=== PATIENT | female | born 1930 | race Caucasian/White ===

== ENCOUNTER → 2018-05-17 | Outpatient (CLI) | payer MEDICARE ==
[~2018-05-17] MED LIST: AMLODIPINE BES2.5 MG PO; ASPIRIN81 M1 PO; ATENOLOL100 MG PO; CALCIUM; FISH OIL; NEXIUM40 MG PO; SEROQUEL XR150 MG PO; TEMAZEPAM30 MG PO; VITAMIN C; VITAMIN D; VITAMIN E
--- NOTE | 2018-05-17 11:25 | Diagnostic Imaging Report ---
PROCEDURE: Frontal and lateral views of the chest. COMPARISON: None. INDICATIONS: FALL, LOWER BACK PAIN, COMPRESSION FRACTURE FINDINGS: Exam is limited due to patient rotation. Lines/tubes: None. Lungs: The lungs are well inflated and grossly clear. There is no evidence of pneumonia or pulmonary edema. Pleura: There is no pleural effusion or pneumothorax. Heart and mediastinum: Cardiac silhouette is unremarkable. Atherosclerotic calcification of aortic arch. Bones and soft tissues: Age-indeterminate compression fractures of likely T11 and L1. Generalized osteopenia. Degenerative changes in the thoracic spine. Metallic clips project in the region of the left breast. IMPRESSION: 1. No acute cardiopulmonary abnormalities. 2. Age-indeterminate compression fractures of likely T11 and L1. Michael Mcgrath M.D. Dictated by: Michael Mcgrath M.D. on 05/17/2018 at 11:30 Electronically approved by: Michael Mcgrath M.D. on 05/17/2018 at 11:30
== END ==
LOC: RAD 10:14
PROVIDERS: ATTEND Family Medicine
DX: S32.009A Unspecified fracture of unspecified lumbar vertebra, initial encounter for closed fracture (principal)
CPT/HCPCS: 71046

== ENCOUNTER → 2019-01-30 | Day surgery (SDC) | payer MEDICARE ==
[2019-01-29 10:51] LABS: BASOPHILS % 0.8 % (0.0-1.0); EOSINOPHILS # (AUTO) 0.1 (0.0-0.4); HEMATOCRIT 35.7 % (34.2-44.1); HEMOGLOBIN 11.2 g/dL (12.0-16.0); LYMPHOCYTES # (AUTO) 0.9 (1.0-3.2); LYMPHOCYTES % 18.3 % (18.0-39.1); MEAN CORPUSCULAR HEMOGLOBIN 31.3 pg (28-32); MEAN CORPUSCULAR HGB CONC 31.4 g/dL (31-35); MEAN CORPUSCULAR VOLUME 99.7 fL (81-99); MONOCYTES # (AUTO) 0.4 (0.2-0.8); MONOCYTES % 7.8 % (4.4-11.3); NEUTROPHILS # (AUTO) 3.5 (2.1-6.9); NEUTROPHILS % 70.9 % (38.7-80.0); PLATELET COUNT 153 x10e3/uL (140-360); RED BLOOD COUNT 3.58 x10e6/uL (3.6-5.1); RED CELL DISTRIBUTION WIDTH 12.7 % (11.7-14.4)
[~2019-01-30] MED LIST changes: +AMIODARONE HCL200 MG; +BENADRYL25 M1; +BISACODYL5 MG PO; +DIAZEPAM5 MG PO; +DOCUSATE SODIU100 MG PO; +ELIQUIS; +GABAPENTIN100 MG; +HYDRALAZINE HCL25 MG PO; +LEVALBUTER0.63 MG/3 NEB; +LIDOCAINE HCL 2% LOCAL INJ 5 ML SDV VIAL INJ ONE; +LIDOCAINE TD; +NEOMYCIN/POLYMYX/BACITR OINT 0.9 GM PKT ONE; +NORCO 7.5-3251 EACH PO; +ONDANSETRON ODT8 MG; +PANTOPRAZOLE SO40 MG PO; +PRESERVISION A1 EACH; +PROPOFOL IV EMULSION 10 MG/ML 20 ML VIAL ONE; +TRAZODONE HCL100 MG; +[UNRECOGNIZED DRUG - OTHER]
--- OUTSIDE RECORDS SUMMARY | 2019-01-30 09:11 | XMS REPORT ---
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 Allergies, Adverse Reactions, Alerts Allergy Name Allergy Type Status Severity Reaction(s) Onset Date Inactive Date Treating Clinician Comments meperidine HCl DA Active [place] 2018-06-20 00:00:00 Medications This patient has no known medications. Results Test Description Test Time Test Comments Text Results Atomic Results Result Comments CHEST 2 VIEWS 2018-05-17 11:30:00 [place] [address] Patient Name: BULL COBB MR #: [id number] : 1930 Age/Sex: 88/F Req #: [id number] Adm Physician: Ordered by: SUNNY HELMS MD Report #: [id number] Location: [facility] Room/Bed: Procedure: [id number] DX/CHEST 2 VIEWS Exam Date: 05/17/18 Exam Time: 1030 REPORT STATUS: Signed PROCEDURE: Frontal and lateral views of the chest. COMPARISON: None. INDICATIONS: FALL, LOWER BACK PAIN, COMPRESSION FRACTURE FINDINGS: Exam is limited due to patient rotation. Lines/tubes: None. Lungs: The lungs are well inflated and grossly clear. There is no evidence of pneumonia or pulmonary edema. Pleura: There is no pleural effusion or pneumothorax. Heart and mediastinum: Cardiac silhouette is unremarkable. Atherosclerotic calcification of aortic arch. Bones and soft tissues: Age-indeterminate compression fractures of likely T11 and L1. Generalized osteopenia. Degenerative changes in the thoracic spine. Metallic clips project in the region of the left breast. IMPRESSION: 1. No acute cardiopulmonary abnormalities. 2. Age-indeterminate compression frac tures of likely T11 and L1. Duong Perera M.D. Dictated by: Duong Perera M.D. on 05/17/2018 at 11:30 Electronically approved by: Duong Perera M.D. on 05/17/2018 at 11:30 Dictated By: DUONG PERERA MD 1130 Transcribed By: GERARDO on 05/17/18 1130 COPY TO: SUNNY HELMS MD
--- OUTSIDE RECORDS SUMMARY | 2019-01-30 09:11 | XMS REPORT | Clinical Summary ---
Author Author [facility] Organization [facility] Address Unknown Phone Unavailable Care Team Providers Care Retail Field Supervisor Name Role Phone Evan Lamas MD PCP Allergies Comments Active Allergy Reactions Severity Noted Date Patient stated that she was told by a doctor at [facility] that she should not take demerol. Patient does not know reaction, states she felt like she was dying Meperidine Other (See 04/29/2016 Comments) Medications End Date Status Medication Sig Dispensed Refills Start Date Active amLODIPine (NORVASC) 10 Take 5 mg by 0 mg tablet mouth daily. Active amIODarone (PACERONE) 200 Take 100 mg 0 MG tablet by mouth every other day. Active morPHINE (MS CONTIN) 15 Take 15 mg by 0 MG 12 hr tablet mouth every 12 (twelve) hours. Active traZODone (DESYREL) 100 Take 200 mg 0 MG tablet by mouth nightly. Active tamsulosin (FLOMAX) 0.4 Take 0.4 mg 0 mg capsule,extended by mouth as release 24hr needed. Active oxyCODone-acetaminophen Take 1 tablet 0 (PERCOCET) 7.5-325 mg per by mouth 2 tablet (two) times a day as needed for moderate pain. Active ondansetron ODT Take 4 mg by 0 (ZOFRAN-ODT) 4 MG mouth every 8 disintegrating tablet (eight) hours as needed for nausea or vomiting. Active cholecalciferol, vitamin Take 1,000 0 D3, (VITAMIN D3) 1,000 Units by unit tablet mouth daily. Active calcium carbonate Take 1 tablet 0 (CALCIUM 600 ORAL) by mouth daily. Active vitamin E 400 UNIT Take 400 0 capsule Units by mouth daily. Active ascorbic acid, vitamin C, Take 500 mg 0 (VITAMIN C) 500 MG tablet by mouth daily. Active cyanocobalamin (VITAMIN Take 1,000 0 B-12) 1000 MCG tablet mcg by mouth daily. Active vit Take 2 0 C/E/Zn/coppr/lutein/zeaxa tablets by n (PRESERVISION AREDS 2 mouth daily. ORAL) Active ELIQUIS 2.5 mg tablet 2.5 mg 2 0 (two) times a 8 day. Active lactulose (CHRONULAC) 10 TK 15 ML PO 0 gram/15 mL solution QD 8 Active pantoprazole (PROTONIX) TK 1 T PO QD 0 40 MG EC tablet 8 Active hydrALAZINE (APRESOLINE) Take 50 mg by 0 50 MG tablet mouth as needed. Active diphenhydrAMINE Take 25 mg by 0 (BENADRYL) 25 mg tablet mouth nightly. Active amoxicillin-pot Take 1 tablet 0 clavulanate (AUGMENTIN) by mouth. 875-125 mg per tablet Active donepezil (ARICEPT) 10 MG Take 10 mg by 0 tablet mouth nightly. Active atorvastatin (LIPITOR) 20 Take 20 mg by 0 MG tablet mouth daily. Default OP ins Active PROLIA 60 mg/mL syringe Inject 1 mL 2 syringe (60 mg total) 9 under the skin 03/07/2018 Discontinued HYDROcodone-acetaminophen Take 1 tablet 0 (NORCO 10-325) 10-325 mg by mouth per tablet every 6 (six) hours as needed for moderate pain. 03/07/2018 Discontinued amIODarone (PACERONE) 200 Take 200 mg 0 MG tablet by mouth daily. 03/07/2018 Discontinued cholecalciferol, vitamin Take 1,000 0 D3, (VITAMIN D3) 1,000 Units by unit tablet mouth daily. 03/07/2018 Discontinued apixaban (ELIQUIS) 5 mg Take 5 mg by 0 tablet mouth 2 (two) times a day. 03/07/2018 Discontinued ascorbic acid (VITAMIN C) Take 500 mg 0 500 MG tablet by mouth daily. 03/07/2018 Discontinued atorvastatin (LIPITOR) 20 Take 20 mg by 0 MG tablet mouth nightly. 03/07/2018 Discontinued calcium carbonate (TUMS) Chew 1 tablet 0 200 mg calcium (500 mg) daily. chewable tablet 03/07/2018 Discontinued docusate sodium (COLACE) Take 200 mg 0 100 MG capsule by mouth 2 (two) times a day. 03/07/2018 Discontinued donepezil (ARICEPT) 10 MG Take 10 mg by 0 tablet mouth daily. 03/07/2018 Discontinued melatonin tablet Take 3 mg by 0 mouth nightly as needed for sleep. 03/07/2018 Discontinued omeprazole (PriLOSEC) 20 Take 20 mg by 0 MG capsule mouth daily. 03/07/2018 Discontinued vitamin E 400 UNIT Take 400 0 capsule Units by mouth daily. 03/07/2018 Discontinued ANTIOX#10/OM3/DHA/EPA/LUT Take 1 tablet 0 /ZEAX (I-CAPS ORAL) by mouth daily. 03/07/2018 Discontinued CRANBERRY EXTRACT Take 1 tablet 0 (CRANBERRY ORAL) by mouth 2 (two) times a day. 03/07/2018 Discontinued ALPRAZolam (XANAX) 0.25 TK 1 T PO HS 2 MG tablet 6 03/07/2018 Discontinued amLODIPine (NORVASC) 10 TK 1 T PO 1 MG tablet ONCE D FOR 90 6 DAYS 03/07/2018 Discontinued citalopram (CeleXA) 20 MG TK 1 T PO 1 tablet ONCE D 6 03/07/2018 Discontinued clonAZEPAM (KlonoPIN) DIS ONE T PO 0 0.25 MG disintegrating BID PRN 6 tablet 03/07/2018 Discontinued hydrALAZINE (APRESOLINE) TK 1 T PO TID 1 50 MG tablet FOR 90 DAYS 6 03/07/2018 Discontinued hydrochlorothiazide TK 2 TS PO D 0 (HYDRODIURIL) 12.5 MG FOR 15 DAYS 6 tablet 03/07/2018 Discontinued metoprolol tartrate 0 (LOPRESSOR) 25 MG tablet 6 03/07/2018 Discontinued ondansetron ODT TK 1 T PO Q 8 1 (ZOFRAN-ODT) 4 MG H PRN N 6 disintegrating tablet 03/07/2018 Discontinued propranolol (INDERAL) 40 TK 1 T PO BID 2 MG tablet 6 03/07/2018 Discontinued QUEtiapine (SEROquel) 25 TK 1 T PO QD 0 MG tablet FOR 10DAYS 6 03/07/2018 Discontinued temazepam (RESTORIL) 15 TK 1 C PO QD 0 mg capsule HS 6 03/07/2018 Discontinued tiZANidine (ZANAFLEX) 2 TK 1 T PO Q 1 MG tablet 12 H PRN 6 03/07/2018 Discontinued zolpidem (AMBIEN) 10 mg TK 1 T PO HS 0 tablet 6 03/07/2018 Discontinued apixaban (ELIQUIS) 5 mg Take 1 0 tablet tablet(s) twice a day by oral route for 30 days. 04/01/2018 Discontinued apixaban (ELIQUIS) 5 mg Take 5 mg by 0 tablet mouth 2 (two) times a day. 04/01/2018 Discontinued hydrALAZINE (APRESOLINE) Take 50 mg by 0 50 MG tablet mouth 2 (two) times a day. 06/13/2018 Discontinued atorvastatin (LIPITOR) 20 Take 20 mg by 0 MG tablet mouth daily. Default OP ins 06/13/2018 Discontinued naloxegol (MOVANTIK) 25 Take 25 mg by 0 mg tablet tablet mouth daily before breakfast. 06/13/2018 Discontinued calcitonin, salmon, 1 spray into 0 (MIACALCIN) 200 each nostril unit/actuation nasal daily. spray 04/01/2018 Discontinued diphenhydrAMINE Take 25 mg by 0 (BENADRYL) 25 mg tablet mouth nightly. 04/01/2018 Discontinued propranolol (INDERAL) 20 Take 20 mg by 0 MG tablet mouth 2 (two) times a day. 06/13/2018 Discontinued donepezil (ARICEPT) 10 MG Take 10 mg by 0 tablet mouth nightly. 03/21/2018 Discontinued QUEtiapine (SEROquel) 50 Take 50 mg by 0 MG tablet mouth nightly. 06/13/2018 Discontinued cranberry 500 mg capsule Take 2 0 capsules by mouth daily. 04/01/2018 Discontinued QUEtiapine (SEROquel) 50 Take 0.5 15 tablet 0 03/21/201 MG tablet tablets (25 8 mg total) by mouth nightly for 30 days. 04/01/2018 Discontinued furosemide (LASIX) 20 mg Take 1 tablet 60 tablet 0 tablet (20 mg total) 8 by mouth 2 (two) times a day for 30 days. 04/30/2018 Discontinued cetirizine (ZyrTEC) 5 MG Take 1 tablet 30 tablet 0 tablet (5 mg total) 8 by mouth nightly for 30 days. 05/01/2018 propranolol (INDERAL) 10 Take 1 tablet 60 tablet 0 MG tablet (10 mg total) 8 by mouth 2 (two) times a day for 30 days. 05/01/2018 apixaban (ELIQUIS) 2.5 mg Take 1 tablet 60 tablet 0 tablet (2.5 mg 8 total) by mouth 2 (two) times a day for 30 days. 06/13/2018 Discontinued polyethylene glycol Take 17 g by 5 packet 0 (MIRALAX) 17 gram packet mouth daily 8 as needed for constipation for up to 5 doses. 04/08/2018 nitrofurantoin, Take 1 14 capsule 0 macrocrystal-monohydrate, capsule (100 8 (MACROBID) 100 MG capsule mg total) by mouth 2 (two) times a day for 7 days. 04/30/2018 Discontinued cholecalciferol, vitamin Vitamin D3 0 D3, (VITAMIN D3) 1,000 1,000 unit 6 unit capsule capsule Take 1 capsule every day by oral route. 04/30/2018 Discontinued atorvastatin (LIPITOR) 20 atorvastatin 0 MG tablet 20 mg tablet 6 Take 1 tablet every day by oral route at bedtime. 06/13/2018 Discontinued propranolol (INDERAL) 10 0 MG tablet 8 06/13/2018 Discontinued AMITIZA 24 mcg capsule TK 1 C PO QD 1 FOR 8 CONSTIPATION 06/13/2018 Discontinued ipratropium (ATROVENT) 2 sprays into 0 0.03 % nasal spray each nostril every 12 (twelve) hours. 06/13/2018 Discontinued levalbuterol (XOPENEX) Take 1 ampule 0 0.63 mg/3 mL nebulizer by solution nebulization every 8 (eight) hours as needed for wheezing. 11/30/2018 denosumab (PROLIA) 60 Inject 1 mL 1 mL 2 mg/mL syringe syringe (60 mg total) 9 under the skin once for 1 dose. Status Hospital, Clinic, or Ordered Dose Route Frequency Start End Date Other Facility Date Administered Medication Ended denosumab (PROLIA) 60 mg subQ once 12/18/19 syringe 60 mgIndications: 19 9 Senile osteoporosis Active Problems Problem Noted Date Fracture of vertebra, compression 06/13/2018 Senile osteoporosis 06/05/2018 Overview: Added automatically from request for surgery [id number] Closed compression fracture of thoracic vertebra 06/05/2018 Overview: Added automatically from request for surgery [id number] Fracture, Colles, left, closed 04/30/2018 Altered mental status, unspecified 03/22/2018 Altered mental status 03/07/2018 Cerebrovascular accident 07/19/2016 Macular edemas, 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 CVA (cerebral vascular accident) 07/19/2016 Subretinal hemorrhage of right eye 07/19/2016 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 07/19/2016 Visual field defect, unspecified 07/19/2016 Compression fracture of L1 lumbar vertebra 04/29/2016 CKD (chronic kidney disease) 04/29/2016 Insomnia 04/29/2016 Paroxysmal A-fib 04/29/2016 Encounters Care Team Description Date Type Specialty Bren Carlisle PA-C Senile osteoporosis (Primary Dx) 12/18/2018 Office Visit Orthopedic Surgery Walt George MD Compression fracture of body of thoracic vertebra (HCC) (Primary Dx); Chronic midline low back pain without sciatica 11/30/2018 Office Visit Orthopedic Surgery N/A 06/20/2018 Intake Access Julisa Batista RN 06/14/2018 Patient Quality Outreach Naye Turcios FNP-C 06/13/2018 Anesthesia General Surgery Event Walt George MD T11 KYPHOPLASTY WITH ABLATION 06/13/2018 Surgery General Surgery Walt George MD Closed compression fracture of thoracic vertebra, initial encounter; Senile osteoporosis 06/13/2018 [facility] General Internal Medicine - Encounter 06/14/2018 Walt George MD Closed compression fracture of thoracic vertebra, initial encounter; Senile osteoporosis 06/06/2018 Pre-Admit Pre-Admission Testing Testing Appointment Linsey Santos MA Closed compression fracture of thoracic vertebra, initial encounter (Primary Dx); Senile osteoporosis 06/05/2018 Prep for Orthopedic Surgery Surgery Walt George MD Pathologic lumbar vertebral fracture, sequela (Primary Dx) 06/01/2018 Office Visit Orthopedic Surgery Walt George MD Acute midline thoracic back pain 05/29/2018 Hospital Radiology Encounter Walt George MD Lumbar spine pain 05/29/2018 Hospital Radiology Encounter Caleb Izquierdo MD Closed Colles' fracture of left radius, initial encounter (Primary Dx) 05/25/2018 Office Visit Orthopedic Surgery Walt George MD Senile osteoporosis 05/18/2018 Hospital Radiology Encounter Walt George MD Senile osteoporosis (Primary Dx) 05/15/2018 Office Visit Orthopedic Surgery Sumaya Berg MA Lumbar spine pain (Primary Dx); Acute midline thoracic back pain 05/15/2018 Orders Only Orthopedic Surgery Caleb Izquierdo MD Closed Colles' fracture of left radius, initial encounter (Primary Dx) 05/11/2018 Office Visit Orthopedic Surgery Caleb Izquierdo MD 04/30/2018 Hospital Radiology Encounter Caleb Izquierdo MD 04/30/2018 Hospital Radiology Encounter Caleb Izquierdo MD 04/30/2018 Hospital Radiology Encounter Caleb Izquierdo MD 04/30/2018 Hospital Radiology Encounter Caleb Izquierdo MD 04/30/2018 Hospital Radiology Encounter Caleb Izquierdo MD 04/30/2018 Hospital Radiology Encounter Caelb Izquierdo MD Closed Colles' fracture of left radius, initial encounter (Primary Dx) 04/30/2018 Office Visit Orthopedic Surgery Lily Lambert, PharmD 04/02/2018 Patient Quality Outreach Darlin Carroll MD Cherian, Cecil, MD Paroxysmal a-fib (Primary Dx); Subretinal hemorrhage of right eye 03/22/2018 [facility] - Encounter 04/01/2018 Rusty Mondragon MD Miller, Susan M., MD Miller, Suzanne K., MD Altered mental status, unspecified altered mental status type (Primary Dx); Delirium; Urinary tract infection without hematuria, site unspecified; Acute renal failure, unspecified acute renal failure type; Paroxysmal a-fib; Open compression fracture of L1 lumbar vertebra with routine healing, subsequent encounter; Cerebrovascular accident (CVA) due to thrombosis of vertebral artery, unspecified blood vessel laterality 03/07/2018 Hospital Neurology - Encounter 03/22/2018 after 01/29/2018 Immunizations Name Dates Previously Given Next Due Influenza LAIV (Nasal) 07/02/2017 Pneumococcal Conjugate 07/02/2017 Family History Medical History Relation Name Comments Diabetes Brother Stroke Brother Heart disease Father Cancer Mother Diabetes Mother Hypertension Mother Relation Name Status Comments Brother Father Mother Social History Date Tobacco Use Types Packs/Day Years Used Never Smoker Smokeless Tobacco: Never Used Alcohol Use Drinks/Week oz/Week Comments Yes 1 Glasses of 0.6 every night wine Sex Assigned at Date Recorded Not on file Industry Job Start Date Occupation Not on file Not on file Not on file Travel End Travel History Travel Start No recent travel history available. Last Filed Vital Signs Time Taken Vital Sign Reading 12/18/2018 11:21 AM [employer] Blood Pressure 145/82 12/18/2018 11:21 AM [employer] Pulse 85 12/18/2018 11:21 AM [employer] Temperature 36.8 C (98.3 F) 06/14/2018 11:43 AM CDT Respiratory Rate 18 06/14/2018 11:43 AM CDT Oxygen Saturation 92% - Inhaled Oxygen - Concentration 06/13/2018 4:23 PM CDT Weight 59 kg (130 lb) 06/13/2018 4:23 PM CDT Height 167.6 cm (5' 6") 06/13/2018 4:23 PM CDT Body Mass Index 20.98 Plan of Treatment Care Team Description Date Type Specialty Bren Carlisle PA-C [address] [facility] [address] [place] [address] [phone] 06/18/2019 Office Visit Orthopedic Surgery Health Maintenance Due Date Last Done Comments SHINGLES VACCINES (#1) 1979 65+ PNEUMOCOCCAL VACCINE 07/02/2018 07/02/2017 (2 of 2 - PPSV23) INFLUENZA VACCINE 05/23/2019 PNEUMOCOCCAL Completed 07/02/2017 POLYSACCHARIDE VACCINE AGE 65 AND OVER Implants Device Identifier Shelf Expiration Date Model / Serial / Lot Implanted Type 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 Manufactur er 06/22/2020 [id number] / / [id number] [employer] N/A: N/A [employer] - [id number] Bone OF Implanted: Qty: 1 on 06/13/2018 by [employer] MEDWalt Johnson MD SPINE Procedures Comments Procedure Name Priority Date/Time Associated Diagnosis XR LUMBAR SPINE 2 OR 3 VW Routine 11/30/2018 Compression fracture of 11:49 AM [employer] body of thoracic vertebra (HCC) Chronic midline low back pain without sciatica XR THORACIC SPINE 2 VW Routine 11/30/2018 Compression fracture of 11:25 AM [employer] body of thoracic vertebra (HCC) OR FL < 1 HOUR Routine 06/13/2018 10:31 AM CDT SURGICAL PATHOLOGY Routine 06/13/2018 REQUEST 9:44 AM CDT OH AN ELECTIVE Routine 06/13/2018 ENDOTRACHEAL AIRWAY 9:05 AM CDT Procedure Note - Delbert Londono CRNA - 06/13/2018 9:05 AM CDT Airway Date/Time: 06/13/2018 8:08 AM Performed by: DELBERT LONDONO Authorized by: ANALI BREWER Location: OR Urgency: Elective Difficult Airway: No Resident/C RNA/AA: DELBERT LONDONO Performed by: resident/C RNA/AA Preoxygena jaskaran with 100% O2: Yes C-spine Precaution s Maintained Throughout : Yes Mask Ventilatio n: Easy mask Final Airway Type: Endotrache al airway Final Endotrache al Airway: ETT Technique Used: Direct laryngosco py Insertion Site: Oral Blade Type: Annette Laryngosco pe Blade/Vide olaryngosc ope Blade Size: 3 ETT Size (mm): 7.0 Measured from: Lips ETT to Lips (cm): 21 Placement Verified by: CO2 detection, direct visualizat ion and equal breath sounds Laryngosco pic view: Grade IIa - partial view of glottis Rapid Sequence Induction (RSI): No Modified RSI: No Number of Attempts at Approach: 1 POC PANEL 4 Routine 06/13/2018 7:00 AM CDT URINALYSIS SCREEN AND Routine 06/06/2018 Closed compression MICROSCOPY, WITH REFLEX 1:40 PM CDT fracture of thoracic TO CULTURE vertebra, initial encounter Senile osteoporosis URINE CULTURE Routine 06/06/2018 1:40 PM CDT GRAM STAIN Routine 06/06/2018 1:40 PM CDT ZZESTIMATED GFR Routine 06/06/2018 1:15 PM CDT VITAMIN D 25 HYDROXY Routine 06/06/2018 Closed compression LEVEL 1:15 PM CDT fracture of thoracic vertebra, initial encounter Senile osteoporosis SEDIMENTATION RATE Routine 06/06/2018 Closed compression 1:15 PM CDT fracture of thoracic vertebra, initial encounter Senile osteoporosis RAPID HIV 1 & 2 Routine 06/06/2018 Closed compression 1:15 PM CDT fracture of thoracic vertebra, initial encounter Senile osteoporosis PROTHROMBIN TIME WITH INR Routine 06/06/2018 Closed compression 1:15 PM CDT fracture of thoracic vertebra, initial encounter Senile osteoporosis PARTIAL THROMBOPLASTIN Routine 06/06/2018 Closed compression TIME (PTT) 1:15 PM CDT fracture of thoracic vertebra, initial encounter Senile osteoporosis HEPATITIS ACUTE PANEL Routine 06/06/2018 Closed compression 1:15 PM CDT fracture of thoracic vertebra, initial encounter Senile osteoporosis HEMOGLOBIN A1C Routine 06/06/2018 Closed compression 1:15 PM CDT fracture of thoracic vertebra, initial encounter Senile osteoporosis COMPREHENSIVE METABOLIC Routine 06/06/2018 Closed compression PANEL 1:15 PM CDT fracture of thoracic vertebra, initial encounter Senile osteoporosis HC COMPLETE BLD COUNT Routine 06/06/2018 Closed compression W/AUTO DIFF 1:15 PM CDT fracture of thoracic vertebra, initial encounter Senile osteoporosis MRI LUMBAR SPINE WO Routine 05/29/2018 Lumbar spine pain CONTRAST 12:45 PM CDT MRI THORACIC SPINE WO Routine 05/29/2018 Acute midline thoracic CONTRAST 12:19 PM CDT back pain XR WRIST 3+ VW LEFT Routine 05/25/2018 Closed Colles' fracture 10:48 AM CDT of left radius, initial encounter BONE DENSITY Routine 05/18/2018 Senile osteoporosis 2:13 PM CDT XR WRIST 3+ VW LEFT Routine 05/11/2018 Closed Colles' fracture 11:33 AM CDT of left radius, initial encounter XR WRIST 3+ VW LEFT Routine 04/30/2018 Closed Colles' fracture 2:48 PM CDT of left radius, initial encounter Procedure Note - Linsey Smith PA-C - 04/30/2018 2:56 PM CDT I have ordered, performed, and interprete d the following xrays: 3 views of the left wrist which shows a comminuted , intra-stephanie cular distal radius fracture with mild shortening and about 5-10 degrees of dorsal tilt. She has a small ulna styloid fracture. XR CHEST EXTERNAL STUDY Routine 04/27/2018 5:44 PM CDT XR UPPER EXTREMITY Routine 04/27/2018 EXTERNAL STUDY 5:44 PM CDT XR SPINE EXTERNAL STUDY Routine 04/27/2018 5:44 PM CDT XR UPPER EXTREMITY Routine 04/27/2018 EXTERNAL STUDY 5:44 PM CDT XR LOWER EXTREMITY Routine 04/27/2018 EXTERNAL STUDY 5:44 PM CDT XR SPINE EXTERNAL STUDY Routine 04/27/2018 5:44 PM CDT XR CHEST 1 VW PORTABLE STAT 04/01/2018 10:53 AM CDT ZZESTIMATED GFR Routine 04/01/2018 5:30 AM CDT BASIC METABOLIC PANEL Routine 04/01/2018 5:30 AM CDT HC COMPLETE BLD COUNT Routine 04/01/2018 W/AUTO DIFF 5:30 AM CDT HC COMPLETE BLD COUNT Routine 03/30/2018 W/AUTO DIFF 4:52 AM CDT HC COMPLETE BLD COUNT Routine 03/29/2018 W/AUTO DIFF 5:54 AM CDT HC COMPLETE BLD COUNT Routine 03/28/2018 W/AUTO DIFF 9:49 AM CDT ZZESTIMATED GFR Routine 03/28/2018 6:24 AM CDT BASIC METABOLIC PANEL Routine 03/28/2018 6:24 AM CDT CBC WITH PLATELET AND Routine 03/28/2018 DIFFERENTIAL 6:24 AM CDT URINALYSIS SCREEN AND Routine 03/25/2018 MICROSCOPY, WITH REFLEX 7:50 AM CDT TO CULTURE GRAM STAIN Routine 03/25/2018 7:50 AM CDT URINE CULTURE Routine 03/25/2018 7:50 AM CDT HC COMPLETE BLD COUNT Routine 03/21/2018 W/AUTO DIFF 5:30 AM CDT ZZESTIMATED GFR Routine 03/21/2018 4:00 AM CDT BASIC METABOLIC PANEL Routine 03/21/2018 4:00 AM CDT ECHOCARDIOGRAM 2D Routine 03/20/2018 COMPLETE W MMODE SPECTRAL 2:44 PM CDT COLOR DOPPLER (08751) ZZESTIMATED GFR Timed 03/20/2018 12:25 PM CDT B NATRIURETIC PEPTIDE Timed 03/20/2018 12:25 PM CDT HC COMPLETE BLD COUNT Timed 03/20/2018 W/AUTO DIFF 12:25 PM CDT BASIC METABOLIC PANEL Timed 03/20/2018 12:25 PM CDT XR CHEST 1 VW PORTABLE Routine 03/20/2018 11:30 AM CDT POC GLUCOSE Routine 03/19/2018 8:31 PM CDT URINALYSIS SCREEN AND Routine 03/19/2018 MICROSCOPY, WITH REFLEX 8:00 PM CDT TO CULTURE URINE CULTURE Routine 03/19/2018 8:00 PM CDT HC COMPLETE BLD COUNT Routine 03/18/2018 W/AUTO DIFF 5:23 AM CDT ZZESTIMATED GFR Routine 03/18/2018 4:00 AM CDT BASIC METABOLIC PANEL Routine 03/18/2018 4:00 AM CDT XR LUMBAR SPINE 1 VW Routine 03/16/2018 6:36 PM CDT XR HIP 2-3 VIEWS LEFT Routine 03/16/2018 6:35 PM CDT GRAM STAIN Routine 03/16/2018 3:35 PM CDT SPUTUM CULTURE Routine 03/16/2018 3:35 PM CDT HC COMPLETE BLD COUNT Routine 03/15/2018 W/AUTO DIFF 7:20 AM CDT ZZESTIMATED GFR Routine 03/15/2018 4:00 AM CDT BASIC METABOLIC PANEL Routine 03/15/2018 4:00 AM CDT CLOSTRIDIUM DIFFICILE Routine 03/13/2018 TOXIN 3:15 PM CDT XR CHEST 2 VW Routine 03/12/2018 8:31 PM CDT ZZESTIMATED GFR Routine 03/10/2018 5:12 AM CDT BASIC METABOLIC PANEL Routine 03/10/2018 5:12 AM CDT MAGNESIUM LEVEL Routine 03/10/2018 5:12 AM CDT PHOSPHORUS LEVEL Routine 03/10/2018 5:12 AM CDT HC COMPLETE BLD COUNT Routine 03/10/2018 W/AUTO DIFF 5:12 AM CDT XR PELVIS 1 OR 2 VW Routine 03/09/2018 4:29 PM CDT CBC WITH PLATELET AND Timed 03/08/2018 DIFFERENTIAL 11:09 AM CDT BASIC METABOLIC PANEL Timed 03/08/2018 8:00 AM CDT ZZESTIMATED GFR Timed 03/08/2018 8:00 AM CDT LACTIC ACID LEVEL, SEPSIS Timed 03/07/2018 - NOW AND REPEAT 2X EVERY 4:26 PM CDT 3 HOURS URINE CULTURE Routine 03/07/2018 1:00 PM CDT GRAM STAIN Routine 03/07/2018 1:00 PM CDT URINALYSIS SCREEN AND Routine 03/07/2018 MICROSCOPY, WITH REFLEX 12:49 PM CDT TO CULTURE XR CHEST 1 VW PORTABLE STAT 03/07/2018 12:33 PM CDT ECG ED PRELIMINARY Routine 03/07/2018 INTERPRETATION 11:57 AM CDT OH CRITICAL CARE, E/M Routine 03/07/2018 30-74 MINUTES 11:[address] HEAD WO CONTRAST STAT 03/07/2018 11:48 AM CDT ZZESTIMATED GFR STAT 03/07/2018 11:18 AM CDT B NATRIURETIC PEPTIDE STAT 03/07/2018 11:18 AM CDT TROPONIN STAT 03/07/2018 11:18 AM CDT COMPREHENSIVE METABOLIC STAT 03/07/2018 PANEL 11:18 AM CDT HC COMPLETE BLD COUNT STAT 03/07/2018 W/AUTO DIFF 11:18 AM CDT BLOOD CULTURE, AEROBIC & Routine 03/07/2018 ANAEROBIC 11:15 AM CDT ECG 12-LEAD STAT 03/07/2018 11:04 AM CDT after 01/29/2018 Results * XR Lumbar Spine 2 Or 3 Vw (11/30/2018 11:49 AM [employer]) Narrative Performed At [facility] and lateral x-rays of the lumbar spine were reviewed.Prior kyphoplasty at T11 and old fracture at L1 are noted.Lumbar vertebrae appear to have normal height and normal alignment.No significant signs of instability are present.Spondylosis of the facet joints is noted. Overall alignment in the lumbar region appears appropriate.No signs of osteoporotic compression fractures are noted. Performing Organization Address [facility] Phone Number [email or web address] [phone] [place] [address] * XR Thoracic Spine 2 Vw (11/30/2018 11:25 AM [employer]) Narrative Performed At [facility] and lateral x-rays of the thoracic spine are reviewed.Kyphoplasty at T11 is present and appears unchanged.She has an old fracture of L1 which also appears unchanged when compared to films from a year ago.No new fractures are identified.No signs of instability are noted. Performing Organization Address [facility] Phone Number [email or web address] [place] [address] * OR [place] < 1 Hour (06/13/2018 10:31 AM CDT) Narrative Performed At EXAMINATION:OR [place] 1 HOUR [facility]-arm fluoroscopy was requested in OR. FT-1.11 MIN; 4.94 mGy IMPRESSION: Separate operative report will be issued by the physician performing the procedure. [id number] Procedure Note Interface, Radiology Results Incoming - 06/13/2018 3:21 PM CDT EXAMINATION: OR [place] 1 HOUR C-arm fluoroscopy was requested in OR. FT-1.11 MIN; 4.94 mGy IMPRESSION: Separate operative report will be issued by the physician performing the procedure. [id number] Performing Organization Address [facility] Phone Number [email or web address] [place] [address] * Surgical pathology request (06/13/2018 9:44 AM CDT) [facility] DEPARTMENT OF PATHOLOGY AND GENOMIC MEDICINE Surgical pathology report See link below for PDF Lab [facility] DEPARTMENT OF Report PATHOLOGY AND GENOMIC MEDICINE Result status This is Final Report for [facility] OF [id number] PATHOLOGY AND GENOMIC MEDICINE Performing Organization Address City/[facility]/Zipcode Phone Number [facility] [place] [address] [address] [place] [phone] PATHOLOGY AND GENOMIC MEDICINE * POC panel 4 (06/13/2018 7:00 AM CDT) POC sodium 137 135 - 148 mmol/L [facility] DEPARTMENT OF PATHOLOGY AND GENOMIC MEDICINE POC potassium 4.5 3.5 - 5.0 mmol/L [facility] DEPARTMENT OF PATHOLOGY AND GENOMIC MEDICINE POC hematocrit 27 (L) 37 - 47 % [facility] DEPARTMENT OF PATHOLOGY AND GENOMIC MEDICINE POC glucose 80 65 - 99 mg/dL [facility] DEPARTMENT OF PATHOLOGY AND GENOMIC MEDICINE POC hemoglobin 9.2 (L) 12.0 - 16.0 g/dL [facility] DEPARTMENT OF Comment: PATHOLOGY AND Meter ID: [id number] [facility] Classified Ad Clerk: Valente Acosta Specimen Blood Performing Organization Address City/[facility]/Zipcode Phone Number [facility] [place] [place] [address] [address] [place] [phone] PATHOLOGY AND GENOMIC MEDICINE * Urinalysis screen and microscopy, with reflex to culture (06/06/2018 1:40 PM CDT) Only the most recent of 4 results within the time period is included. Specimen site Clean catch [facility] DEPARTMENT OF PATHOLOGY AND GENOMIC MEDICINE Color, UA Yellow [facility] DEPARTMENT OF PATHOLOGY AND GENOMIC MEDICINE Appearance, UA Sl Cloudy [facility] DEPARTMENT OF PATHOLOGY AND GENOMIC MEDICINE Specific gravity, UA 1.014 1.001 - 1.035 [facility] DEPARTMENT OF PATHOLOGY AND GENOMIC MEDICINE pH, UA 9.0 (H) 5.0 - 8.5 [facility] DEPARTMENT OF PATHOLOGY AND GENOMIC MEDICINE Protein, UA 1+ (A) Negative [facility] DEPARTMENT OF PATHOLOGY AND GENOMIC MEDICINE Glucose, UA Negative Negative [facility] DEPARTMENT OF PATHOLOGY AND GENOMIC MEDICINE Ketones, UA Negative Negative [facility] DEPARTMENT OF PATHOLOGY AND GENOMIC MEDICINE Bilirubin, UA Negative Negative [facility] DEPARTMENT OF PATHOLOGY AND GENOMIC MEDICINE Blood, UA Negative Negative [facility] DEPARTMENT OF PATHOLOGY AND GENOMIC MEDICINE Nitrite, UA Positive (A) Negative [facility] DEPARTMENT OF PATHOLOGY AND GENOMIC MEDICINE Urobilinogen, UA <2.0 <2.0 [facility] DEPARTMENT OF PATHOLOGY AND GENOMIC MEDICINE Leukocyte esterase, UA Moderate (A) Negative [facility] DEPARTMENT OF PATHOLOGY AND GENOMIC MEDICINE Epithelial cells, UA 1 /HPF [facility] DEPARTMENT OF PATHOLOGY AND GENOMIC MEDICINE WBC, UA 124 (H) 0 - 4 /HPF [facility] DEPARTMENT OF PATHOLOGY AND GENOMIC MEDICINE RBC, UA 3 0 - 5 /HPF [facility] DEPARTMENT OF PATHOLOGY AND GENOMIC MEDICINE Bacteria, UA None seen None seen [facility] DEPARTMENT OF PATHOLOGY AND GENOMIC MEDICINE WBC clumps, UA Few (A) [facility] DEPARTMENT OF PATHOLOGY AND GENOMIC MEDICINE Yeast, UA None seen [facility] DEPARTMENT OF PATHOLOGY AND GENOMIC MEDICINE Yeast with pseudohyphae, None seen [facility] DEPARTMENT OF PATHOLOGY AND GENOMIC MEDICINE Hyaline casts, UA 0-2 /LPF [facility] DEPARTMENT OF PATHOLOGY AND GENOMIC MEDICINE Specimen Urine Performing Organization Address City/State/Zipcode Phone Number [facility] [place] [address] [place] [address] PATHOLOGY AND GENOMIC MEDICINE * Gram stain (06/06/2018 1:40 PM CDT) Only the most recent of 4 results within the time period is included. Gram stain result No WBC's [facility] DEPARTMENT OF Occasional Gram negative rods PATHOLOGY AND Comment: GENOMIC MEDICINE Specimen Information Specimen Source: Urine Specimen Site: Clean catch Specimen Urine Performing Organization Address City/State/Zipcode Phone Number [facility] DEPARTMENT OF [address] [place] [address] PATHOLOGY AND GENOMIC MEDICINE * Urine culture (06/06/2018 1:40 PM CDT) Only the most recent of 4 results within the time period is included. Urine culture isolate Proteus mirabilis [facility] DEPARTMENT OF >10-5 cfu/ml PATHOLOGY AND (A) GENOMIC MEDICINE Comment: Specimen Information Specimen Source: Urine Specimen Site: Clean catch Urine culture isolate Enterococcus faecalis [facility] DEPARTMENT OF 10-4 cfu/ml PATHOLOGY AND The performance GENOMIC MEDICINE characteristics of this assay on this isolate were validated by the Microbiology Laboratory at [facility].This source has not been approved by the U.S. Food and Drug Administration.The results are not intended to be used as the sole means for clinical diagnosis or patient management.The Microbiology Laboratory is authorized under the clinical Laboratory Improvement Amendments of 1988 (CLIA-88) to perform high complexity testing. The performance characteristics of this assay on this isolate were validated by the Microbiology Laboratory at [facility].This source has not been approved by the U.S. Food and Drug Administration.The results are not intended to be used as the sole means for clinical diagnosis or patient management.The Microbiology Laboratory is authorized under the clinical Laboratory Improvement Amendments of 1988 (CLIA-88) to perform high complexity testing. This organism is Vancomycin Sensitive. (A) Specimen Urine Antibiotic Method Susceptibility Organism Ampicillin BROOKE <=2 mcg/mL: Susceptible Proteus mirabilis Amoxicillin/Clavulanate BROOKE <=2/1 mcg/mL: Susceptible Proteus mirabilis Amikacin BROOKE 8 mcg/mL: Susceptible Proteus mirabilis Aztreonam BROOKE <=1 mcg/mL: Susceptible Proteus mirabilis Ceftazidime BROOKE <=0.5 mcg/mL: Susceptible Proteus mirabilis Ciprofloxacin BROOKE <=0.5 mcg/mL: Susceptible Proteus mirabilis Ceftriaxone BROOKE <=0.5 mcg/mL: Susceptible Proteus mirabilis Cefuroxime Sodium BROOKE <=4 mcg/mL: Susceptible Proteus mirabilis Cefazolin BROOKE 4 mcg/mL: Resistant Proteus mirabilis Cefepime BROOKE <=0.5 mcg/mL: Susceptible Proteus mirabilis Nitrofurantoin BROOKE >64 mcg/mL: Resistant Proteus mirabilis Cefoxitin BROOKE <=4 mcg/mL: Susceptible Proteus mirabilis Gentamicin BROOKE 2 mcg/mL: Susceptible Proteus mirabilis Levofloxacin BROOKE <=1 mcg/mL: Susceptible Proteus mirabilis Tobramycin BROOKE 2 mcg/mL: Susceptible Proteus mirabilis Ampicillin/Sulbactam BROOKE <=1/0.5 mcg/mL: Susceptible Proteus mirabilis Trimethoprim/Sulfamethoxazole BROOKE <=0.5/9.5 mcg/mL: Susceptible Proteus mirabilis Tetracycline BROOKE >8 mcg/mL: Resistant Proteus mirabilis Piperacillin/Tazobactam BROOKE <=2/4 mcg/mL: Susceptible Proteus mirabilis Ertapenem BROOKE <=0.125 mcg/mL: Susceptible Proteus mirabilis Tigecycline BROOKE mcg/mL: Resistant Proteus mirabilis Ampicillin BROOKE 1 mcg/mL: Susceptible Enterococcus faecalis Nitrofurantoin BROOKE <=16 mcg/mL: Susceptible Enterococcus faecalis Levofloxacin BROOKE <=1 mcg/mL: Susceptible Enterococcus faecalis Linezolid BROOKE <=1 mcg/mL: Susceptible Enterococcus faecalis Minocycline BROOKE <=1 mcg/mL: Susceptible Enterococcus faecalis Tetracycline BROOKE <=0.5 mcg/mL: Susceptible Enterococcus faecalis Vancomycin BROOKE 1 mcg/mL: Susceptible Enterococcus faecalis Performing Organization Address City/State/Zipcode Phone Number [facility] [address] [place] [address] PATHOLOGY AND GENOMIC MEDICINE * Rapid HIV 1 & 2 (06/06/2018 1:15 PM CDT) Rapid HIV 1 and 2 Non-Reactive Non-Reactive [facility] DEPARTMENT OF PATHOLOGY AND [facility] Specimen Blood Performing Organization Address City/[facility] Phone Number [facility] [place] [address] [place] [phone] PATHOLOGY AND [facility] MEDICINE * Estimated GFR (06/06/2018 1:15 PM CDT) Only the most recent of 10 results within the time period is included. GFR Non Af Amer 25 (A) mL/min/1.73 m2 [facility] DEPARTMENT OF PATHOLOGY AND [facility]ICINE GFR Af Amer 30 (A) mL/min/1.73 m2 [facility] DEPARTMENT OF Comment: PATHOLOGY AND Chronic kidney disease: <60 GENOMIC MEDICINE mL/min/1.73m2 Kidney failure: <15 mL/min/1.73m2 The estimated GFR is calculated from the IDMS-traceable Modification of Diet in Renal Disease Equation. The accuracy of the calculation is poor when the creatinine is normal. Calculated values >90 mL/min/1.73m2 are not reported. This equation has not been validated in children (<18 years), women, the elderly (>70 years), or ethnic groups other than Caucasians and Americans. Specimen Plasma specimen Performing Organization Address City/[facility]/Zipcode Phone Number [facility] [place] [address] [place] [address] PATHOLOGY AND [facility] * Hepatitis acute panel (06/06/2018 1:15 PM CDT) Hepatitis A IgM Non-reactive Non-reactive [facility] DEPARTMENT OF PATHOLOGY AND GENOMIC MEDICINE Hepatitis B core IgM Non-reactive Non-reactive [facility] DEPARTMENT OF PATHOLOGY AND GENOMIC MEDICINE Hepatitis B surface Ag Non-reactive Non-reactive [facility] DEPARTMENT OF PATHOLOGY AND GENOMIC MEDICINE Hepatitis C Ab Non-reactive Non-reactive [facility] DEPARTMENT OF PATHOLOGY AND [facility] Specimen Serum Performing Organization Address City/[facility]/Zipcode Phone Number [place] [address] [place] [address] PATHOLOGY AND [facility] * Vitamin D 25 hydroxy level (06/06/2018 1:15 PM CDT) Vitamin D, 25-hydroxy 74.0 30.0 - 150.0 ng/mL [facility] DEPARTMENT OF Comment: PATHOLOGY AND This assay reports the sum of [facility] 25-hydroxy vitamin D3 and 25-hydroxy vitamin D2. Reference range: 0-17 years: Deficiency: less than 20ng/mL Optimum level: greater than or equal to 20 ng/mL. 18 years and older: Deficiency: less than 20ng/mL Insufficiency: 20-29 ng/mL Optimum Level: 30-80 ng/mL The assay reportable range is 3.4155.9 ng/mL. Levels higher than 150 ng/mL may be associated with toxicity. If toxicity is clinically suspected and the reported result is >155.9 ng/mL,contact lab for alternative methods to obtain a definitivelevel. If separate quantitation of 25-hydroxy vitamin D3 and 25-hydroxy vitamin D2 is needed, please contact lab for alternative methods. Specimen Blood Performing Organization Address [facility] Phone Number [facility] DEPARTMENT OF [address] [place] [phone] PATHOLOGY AND [facility] * Partial thromboplastin time, activated (06/06/2018 1:15 PM CDT) PTT 30.3 23.0 - 36.0 sec [facility] DEPARTMENT OF Comment: PATHOLOGY AND PTT therapeutic range for [facility] unfractionated heparin is 61.0-112.0 seconds which corresponds to Anti-Xa 0.3-0.7 U/ml. Specimen Blood Performing Organization Address [facility] Phone Number [facility] [place] [address] [address] [place] [phone] PATHOLOGY AND [facility] * Sedimentation rate (06/06/2018 1:15 PM CDT) Sedimentation rate 47 (H) 0 - 20 mm/hr [facility] DEPARTMENT OF PATHOLOGY AND [facility] Specimen Blood Performing Organization Address [facility] Phone Number [facility] [place] [address] [address] [facility]. [place] [phone] PATHOLOGY AND [facility]INE * Prothrombin time with INR (06/06/2018 1:15 PM CDT) Prothrombin time 14.3 12.0 - 15.0 sec [facility] DEPARTMENT OF PATHOLOGY AND [facility] INR 1.1 [facility] DEPARTMENT OF Comment: PATHOLOGY AND The International Normalized GENOMIC MEDICINE Ratio (INR) is a therapeutic monitoring tool for patients who are stable on oral anticoagulant therapy. An INR of 2.0-3.0 is suggested for deep vein thrombosis/pulmonary embolism. Specimen Blood Performing Organization Address [facility] Phone Number [facility] [place] [address] [address] [place] [phone] PATHOLOGY AND GENOMIC MEDICINE * CBC with platelet and differential (06/06/2018 1:15 PM CDT) Only the most recent of 13 results within the time period is included. WBC 4.92 4.50 - 11.00 k/uL [facility] DEPARTMENT OF PATHOLOGY AND GENOMIC MEDICINE RBC 3.60 (L) 4.20 - 5.50 m/uL [facility] DEPARTMENT OF PATHOLOGY AND GENOMIC MEDICINE HGB 10.7 (L) 12.0 - 16.0 g/dL [facility] DEPARTMENT OF PATHOLOGY AND GENOMIC MEDICINE HCT 34.0 (L) 37.0 - 47.0 % [facility] DEPARTMENT OF PATHOLOGY AND GENOMIC MEDICINE MCV 94.4 82.0 - 100.0 fL [facility] DEPARTMENT OF PATHOLOGY AND GENOMIC MEDICINE MCH 29.7 27.0 - 34.0 pg [facility] DEPARTMENT OF PATHOLOGY AND GENOMIC MEDICINE MCHC 31.5 31.0 - 37.0 g/dL [facility] DEPARTMENT OF PATHOLOGY AND GENOMIC MEDICINE RDW - SD 47.1 37.0 - 55.0 fL [facility] DEPARTMENT OF PATHOLOGY AND GENOMIC MEDICINE MPV 11.4 8.8 - 13.2 fL [facility] DEPARTMENT OF PATHOLOGY AND GENOMIC MEDICINE Platelet count 190 150 - 400 k/uL [facility] DEPARTMENT OF PATHOLOGY AND GENOMIC MEDICINE Neutrophils 79.9 (H) 39.0 - 69.0 % [facility] DEPARTMENT OF PATHOLOGY AND GENOMIC MEDICINE Lymphocytes 10.0 (L) 25.0 - 45.0 % [facility] DEPARTMENT OF PATHOLOGY AND GENOMIC MEDICINE Monocytes 8.1 0.0 - 10.0 % [facility] DEPARTMENT OF PATHOLOGY AND GENOMIC MEDICINE Eosinophils 1.2 0.0 - 5.0 % [facility] DEPARTMENT OF PATHOLOGY AND GENOMIC MEDICINE Basophils 0.4 0.0 - 1.0 % [facility] DEPARTMENT OF PATHOLOGY AND GENOMIC MEDICINE Immature granulocytes 0.4 0.0 - 1.0 % [facility] OF PATHOLOGY AND GENOMIC MEDICINE Specimen Blood Performing Organization Address City/State/Zipcode Phone Number [facility] [place] [place] [address] [address] [place] [phone] PATHOLOGY AND GENOMIC MEDICINE * Hemoglobin A1c (06/06/2018 1:15 PM CDT) Hemoglobin A1C 5.1 4.0 - 6.0 % [facility] DEPARTMENT OF Comment: PATHOLOGY AND GENOMIC MEDICINE Less than 6% - Goal of therapy for Type II Diabetes Less than 7%-Goal of therapy for Type I Diabetes Less than 8%-Accepta ble control for Type I or Type II Diabetes Greater than 8%-Unacceptabl e control; action indicated. (ADA94) Specimen Blood Performing Organization Address City/[facility]/Zipcode Phone Number [facility] [place] [address] [address] [place] [phone] PATHOLOGY AND GENOMIC MEDICINE * Comprehensive metabolic panel (06/06/2018 1:15 PM CDT) Only the most recent of 2 results within the time period is included. Sodium 139 135 - 148 mEq/L [facility] DEPARTMENT OF PATHOLOGY AND GENOMIC MEDICINE Potassium 5.4 (H) 3.5 - 5.0 mEq/L [facility] DEPARTMENT OF PATHOLOGY AND GENOMIC MEDICINE Chloride 96 (L) 99 - 109 mEq/L [facility] DEPARTMENT OF PATHOLOGY AND GENOMIC MEDICINE CO2 30 24 - 31 mEq/L [facility] DEPARTMENT OF PATHOLOGY AND GENOMIC MEDICINE Anion gap 13@ANIO 7 - 15 mEq/L [facility] DEPARTMENT OF PATHOLOGY AND GENOMIC MEDICINE BUN 29 (H) 8 - 24 mg/dL [facility] DEPARTMENT OF PATHOLOGY AND GENOMIC MEDICINE Creatinine 1.9 (H) 0.5 - 1.5 mg/dL [facility] DEPARTMENT OF PATHOLOGY AND GENOMIC MEDICINE Glucose 134 (H) 65 - 99 mg/dL [facility] DEPARTMENT OF PATHOLOGY AND GENOMIC MEDICINE Calcium 8.9 8.6 - 10.6 mg/dL [facility] DEPARTMENT OF PATHOLOGY AND GENOMIC MEDICINE Protein 6.6 6.3 - 8.2 g/dL [facility] DEPARTMENT OF PATHOLOGY AND GENOMIC MEDICINE Albumin 2.8 (L) 3.5 - 5.0 g/dL [facility] DEPARTMENT OF PATHOLOGY AND GENOMIC MEDICINE A/G ratio 0.7 0.7 - 3.8 [facility] DEPARTMENT OF PATHOLOGY AND GENOMIC MEDICINE Alkaline phosphatase 75 30 - 115 U/L [facility] DEPARTMENT OF PATHOLOGY AND GENOMIC MEDICINE AST 16 15 - 46 U/L [facility] DEPARTMENT OF PATHOLOGY AND GENOMIC MEDICINE ALT 15 10 - 55 U/L [facility] DEPARTMENT OF PATHOLOGY AND GENOMIC MEDICINE Total bilirubin 0.5 0.2 - 1.2 mg/dL [facility] OF PATHOLOGY AND GENOMIC MEDICINE Specimen Plasma specimen Performing Organization Address City/[facility]/Zipcode Phone Number [facility] [place] [address] [place] [address] PATHOLOGY AND GENOMIC MEDICINE * MRI Lumbar Spine Wo Contrast (05/29/2018 12:45 PM CDT) Narrative Performed At [facility] EXAMINATION:MRI LUMBAR SPINE WO CONTRAST COMPARISON:April 30, 2016. CLINICAL HISTORY:M54.5 Low back pain, Back [id number] conservative txpersistent sx, back painr o fracture COMMENTS:Sagittal and axial noncontrast MR imaging of the lumbar spine was obtained. FINDINGS:The lowest functional disc level is assumed to be L5-S1. L5-S1 shows mild facet disease on the left. There is minimal disc bulge. L4-5 shows mild facet disease. There is moderate ligament flavum thickening. There is mild disc bulge. L3-4 shows mild to moderate ligament flavum thickening. There is mild facet disease and disc bulge. The upper levels show mild degenerative change. The conus ends at the L1-2 level. The fracture deformity of the L1 vertebral body now appears chronic. There is mild retropulsion of bone superiorly. Pathologic fracture at T11 vertebral body is described on the MRI of the thoracic spine. IMPRESSION:No acute fracture in the lumbar spine. Pathologic fracture at T11 that is described on the MRI of the thoracic spine. [facility]-[id number] Procedure Note Interface, Radiology Results Incoming - 05/29/2018 1:03 PM CDT EXAMINATION: MRI LUMBAR SPINE WO CONTRAST COMPARISON: April 30, 2016. CLINICAL HISTORY: M54.5 Low back pain, Back pain 6wks conservative tx persistent sx, back pain r o fracture COMMENTS: Sagittal and axial noncontrast MR imaging of the lumbar spine was obtained. FINDINGS: The lowest functional disc level is assumed to be L5-S1. L5-S1 shows mild facet disease on the left. There is minimal disc bulge. L4-5 shows mild facet disease. There is moderate ligament flavum thickening. There is mild disc bulge. L3-4 shows mild to moderate ligament flavum thickening. There is mild facet disease and disc bulge. The upper levels show mild degenerative change. The conus ends at the L1-2 level. The fracture deformity of the L1 vertebral body now appears chronic. There is mild retropulsion of bone superiorly. Pathologic fracture at T11 vertebral body is described on the MRI of the thoracic spine. IMPRESSION: No acute fracture in the lumbar spine. Pathologic fracture at T11 that is described on the MRI of the thoracic spine. [id number] Performing Organization Address City/State/Zipcode Phone Number [facility] [address] [place] [address] * MRI Thoracic Spine Wo Contrast (05/29/2018 12:19 PM CDT) Narrative Performed At EXAMINATION:MRI THORACIC SPINE WO CONTRAST [facility] COMPARISON:May 10, 2016. CLINICAL HISTORY:M54.6 Pain in thoracic spine, T-spine fxpathological, BACK PAINR O FRACTURE COMMENTS:Sagittal and axial MR images of the thoracic spine were obtained. FINDINGS:There is a fracture of the T11 vertebral body. The loss of the height of vertebral body is approximately 50%. There is a soft tissue mass that appears to be anterior to the vertebral body. A small amount of retropulsion of bone and tumor is also noted resulting in mild canal stenosis. There is involvement of the left-sided pedicle. The anterior aspect of the vertebral body shows fluid like signal. The lower thoracic spine overall shows mild facet disease. T6-T7 shows small central disc protrusion. T9-T10 shows minimal left-sided spondylosis. IMPRESSION:Pathologic fracture of the T11 vertebral body with retropulsion of bone and tumor into the spinal canal resulting in mild canal stenosis. The office of Dr. George was called and Dr. George paged for direct communication of results May 29, 2018 at 1244 hours. [id number] Procedure Note Interface, Radiology Results Incoming - 05/29/2018 1:24 PM CDT EXAMINATION: MRI THORACIC SPINE WO CONTRAST COMPARISON: May 10, 2016. CLINICAL HISTORY: M54.6 Pain in thoracic spine, T-spine fx pathological, BACK PAIN R O FRACTURE COMMENTS: Sagittal and axial MR images of the thoracic spine were obtained. FINDINGS: There is a fracture of the T11 vertebral body. The loss of the height of vertebral body is approximately 50%. There is a soft tissue mass that appears to be anterior to the vertebral body. A small amount of retropulsion of bone and tumor is also noted resulting in mild canal stenosis. There is involvement of the left- sided pedicle. The anterior aspect of the vertebral body shows fluid like signal. The lower thoracic spine overall shows mild facet disease. T6-T7 shows small central disc protrusion. T9-T10 shows minimal left-sided spondylosis. IMPRESSION: Pathologic fracture of the T11 vertebral body with retropulsion of bone and tumor into the spinal canal resulting in mild canal stenosis. The office of Dr. George was called and Dr. George paged for direct communication of results May 29, 2018 at 1244 hours. [facility]-[id number] Performing Organization Address City/[facility]/Zipcode Phone Number [email or web address] [address] [place] [address] * XR Wrist 3+ Vw Left (05/25/2018 10:48 AM CDT) Only the most recent of 2 results within the time period is included. Narrative [facility] At [facility] I have ordered, performed, and interpreted the following xrays: 3 views of the left wrist which show a well aligned and healing distal radius fracture with callous formation. Performing Organization Address City/[facility]/Zipcode Phone Number [email or web address] [address] [place] [address] * Bone Density (05/18/2018 2:13 PM CDT) Narrative Performed At EXAMINATION:[facility] DENSITY [facility] CLINICAL HISTORY:M81.0 Age-related osteoporosis without current pathological fracture, OSTEOPOROSIS COMPARISON:None. The results of this study expressed as bone mineral density (BMD) were as follows: AP spine (L1-L4) BMD: 1.013 g/cm2 T-Score: -1.4 Z-Score: 0.7 Percent change: No prior exam. % Right Femur (Total Mean): BMD: 0.687 g/cm2 T-Score: -2.5 Z-Score:0 Percent change: No prior exam. % Impression: WHO bone mineral classification: Osteoporosis. Notes: *The world health organization (WHO) has classified the patient's T-score as follows: At or above (-1) as normal (-1) to (-2.5) as low (osteopenia) At or below (-2.5) as abnormally low (osteoporosis, increased fracture risk) For premenopausal women, men under the age 50 years, and children the WHO classification does not apply. In these individuals please assess bone mineral density with Z scores for each skeletal site examined. Z scores above -2.0: Within expected range for age. Z scores lower than -2.0:Low bone density for age. [facility]-[id number] Procedure Note Interface, Radiology Results Incoming - 05/18/2018 2:54 PM CDT EXAMINATION: BONE DENSITY CLINICAL HISTORY: M81.0 Age-related osteoporosis without current pathological fracture, OSTEOPOROSIS COMPARISON: None. The results of this study expressed as bone mineral density (BMD) were as follows: AP spine (L1-L4) BMD: 1.013 g/cm2 T-Score: -1.4 Z-Score: 0.7 Percent change: No prior exam. % Right Femur (Total Mean): BMD: 0.687 g/cm2 T-Score: -2.5 Z-Score: 0 Percent change: No prior exam. % Impression: WHO bone mineral classification: Osteoporosis. Notes: *The world health organization (WHO) has classified the patient's T-score as follows: At or above (-1) as normal (-1) to (-2.5) as low (osteopenia) At or below (-2.5) as abnormally low (osteoporosis, increased fracture risk) For premenopausal women, men under the age 50 years, and children the WHO classification does not apply. In these individuals please assess bone mineral density with Z scores for each skeletal site examined. Z scores above -2.0: Within expected range for age. Z scores lower than -2.0: Low bone density for age. [facility]-[id number] Performing Organization Address City/[facility] Phone Number [facility] [address] [place] [address] * XR Spine External Study (04/27/2018 5:44 PM CDT) Only the most recent of 2 results within the time period is included. Narrative Performed At This exam was not acquired at a [facility] facility and has not been [facility] interpreted by a [facility] Provider.The exam was imported into our imaging system for comparisons purposes. Performing Organization Address City/[facility]/Zipcode Phone Number ReferMe RAD[facility]ANT [address] [place] [address] * XR Upper Extremity External Study (04/27/2018 5:44 PM CDT) Only the most recent of 2 results within the time period is included. Narrative Performed At This exam was not acquired at a [facility] facility and has not been [facility] interpreted by a [facility] Provider.The exam was imported into our imaging system for comparisons purposes. Performing Organization Address City/[facility] Phone Number [facility] [address] [place] [address] * XR Lower Extremity External Study (04/27/2018 5:44 PM CDT) Narrative Performed At This exam was not acquired at a [facility] facility and has not been [facility] interpreted by a [facility] Provider.The exam was imported into our imaging system for comparisons purposes. Performing Organization Address [facility] Phone Number [facility] [address] [place] [address] * XR Chest External Study (04/27/2018 5:44 PM CDT) Narrative Performed At This exam was not acquired at a [facility] facility and has not been [facility] interpreted by a [facility] Provider.The exam was imported into our imaging system for comparisons purposes. Performing Organization Address [facility] Hospital[facility]d Phone Number [facility] [address] [place] [address] * XR Chest 1 Vw Portable (04/01/2018 10:53 AM CDT) Only the most recent of 3 results within the time period is included. Narrative Performed At EXAMINATION:XR CHEST 1 VW PORTABLE [facility] CLINICAL HISTORY:Cough COMPARISON:03/20/2018 IMPRESSION: 1.The heart size is at the upper limits of normal.The aorta is atherosclerotic. 2.There is no evidence of pulmonary edema. Subsegmental atelectasis is present at the left lung base. There are no significant effusions. Surgical clips overlie the left axilla. [facility]-[id number] Procedure Note Hm Interface, Radiology Results Incoming - 04/01/2018 10:58 AM CDT EXAMINATION: XR CHEST 1 VW PORTABLE CLINICAL HISTORY: Cough COMPARISON: 03/20/2018 IMPRESSION: 1. The heart size is at the upper limits of normal. The aorta is atherosclerotic. 2. There is no evidence of pulmonary edema. Subsegmental atelectasis is present at the left lung base. There are no significant effusions. Surgical clips overlie the left axilla. [facility]-[id number] Performing Organization Address [facility] Phone Number [facility] [address] [place] [address] * Basic metabolic panel (04/01/2018 5:30 AM CDT) Only the most recent of 8 results within the time period is included. Sodium 141 135 - 148 mEq/L [facility] DEPARTMENT OF PATHOLOGY AND GENOMIC MEDICINE Potassium 4.5 3.5 - 5.0 mEq/L [facility] DEPARTMENT OF PATHOLOGY AND GENOMIC MEDICINE Chloride 102 98 - 112 mEq/L [facility] DEPARTMENT OF PATHOLOGY AND GENOMIC MEDICINE CO2 29 24 - 31 mEq/L [facility] DEPARTMENT OF PATHOLOGY AND GENOMIC MEDICINE Anion gap 10@ANIO 7 - 15 mEq/L [facility] DEPARTMENT OF PATHOLOGY AND GENOMIC MEDICINE BUN 20 8 - 23 mg/dL [facility] DEPARTMENT OF PATHOLOGY AND GENOMIC MEDICINE Creatinine 1.1 (H) 0.5 - 0.9 mg/dL [facility] DEPARTMENT OF PATHOLOGY AND GENOMIC MEDICINE Glucose 82 65 - 99 mg/dL [facility] DEPARTMENT OF PATHOLOGY AND GENOMIC MEDICINE Calcium 8.7 (L) 8.8 - 10.2 mg/dL [facility] DEPARTMENT OF PATHOLOGY AND GENOMIC MEDICINE Specimen Plasma specimen Performing Organization Address City/State/Zipcode Phone Number [facility] DEPARTMENT OF [address] [place] [address] PATHOLOGY AND GENOMIC MEDICINE * Echocardiogram complete w contrast and 3D if needed (03/20/2018 2:44 PM CDT) Narrative Performed At [facility] Echocardiography Report [address] [place] [address] Pat.Name:[facility].ID:[id number] .Date: 03/20/2018 Refer.MD:MARLON FIGUEROA MD Exam Time: 2:00:00 PMStudy Type:Routine Echo Height:68inWeight:140lb BSA: 1.76 m2 DOBAge:1930,87Y Sex: FEMALEBP:95/52 HR:54 bpmSonogrphr: AMINTA Vasques Pat. Stat.:Inpatient Room:[facility] Study Status:Final Echo Event ID:[id number] Order ID:[id number] Reason for Study:HF; initial eval with symptoms History / Clinical:Hypertension, TIA Procedures:2D Echo, Colorflow Doppler, Strain, Portable Race:White SUMMARY: LV EF is normal. Estimated EF is 65-69%. RV systolic function is normal. LV filling pressure is elevated. FINDINGS: LV: LV size is normal. LV EF is normal. Overall wall motion is normal.Estimated EF is 65-69% RV: RV size is enlarged. RV systolic function is normal. RV wall motionis normal. LA: LA volume is severely enlarged. RA: RA volume is severely enlarged. AO: Aortic root diameter is normal. JAMAR: Trace posterolateral pericardial effusion. PLE:Pleural effusion is present. AV: Mild thickening and calcification of AV leaflets. A trace of aorticregurgitation. MV: Mild thickening and calcification of mitral leaflets. Mild mitralannular calcification. Mild mitral regurgitation. PV: Pulmonic valve not well seen. A trace of pulmonic regurgitation. TV: No structural TV abnormalities noted. Mild to moderate tricuspidregurgitation Pappas: LV relaxation is impaired. LV filling pressure is elevated. Other:Estimated PA systolic pressure is 48 mmHg, assuming a mean RAPof 10 mmHg. MEASUREMENTS: 2D Parasternal [place] LVOT 1.9 cmLA Ds4.2 cm LVIDd4.7 cmIndex2.6 cm/m Ao An2.2 cm LVIDs2.9 cmAo Rtd 3.3 cm Index1.9 cm/m LV%fs 38.3 % LV Idgv764.5 g(87-129) IVSd 1 cmLVM Index 93.5 g/m2 LVPWd1 cmRWT0.4 LA Sng Plane LA Area 27.3 cm2(8.8-23.4) LA Vol91.4 ml Index51.9 ml/m LA LngAx 6 cm RA Sng Plane RA Area 27.2 cm2(8.3-19.5) RA Vol95.7 ml Index54.4 ml/m RA LngAx 6.6 cm Signed 03/20/2018 08:05 PM Lois Gray M.D. Procedure Note Interface, Radiology Results In - 03/20/2018 8:05 PM CDT Echocardiography Report [address] [place] [address] Pat.Name: BULL ADAMS Pat.ID: [id number] .Date: 03/20/2018 Refer.MD: MARLON FIGUEROA MD Exam Time: 2:00:00 PM Study Type:Routine Echo Height: 68in Weight: 140lb BSA: 1.76 m2 Age: 6 1930,87Y Sex: FEMALE BP: 95/52 HR: 54 bpm Sonogrphr: AMINTA Vasques Pat. Stat.:Inpatient Room: [facility] Study Status:Final Echo Event ID:[id number] Order ID: [id number] Reason for Study:HF; initial eval with symptoms History / Clinical:Hypertension, TIA Procedures:2D Echo, Colorflow Doppler, Strain, Portable Race: White SUMMARY: LV EF is normal. Estimated EF is 65-69%. RV systolic function is normal. LV filling pressure is elevated. FINDINGS: LV: LV size is normal. LV EF is normal. Overall wall motion is normal. Estimated EF is 65-69% RV: RV size is enlarged. RV systolic function is normal. RV wall motion is normal. LA: LA volume is severely enlarged. RA: RA volume is severely enlarged. AO: Aortic root diameter is normal. JAMAR: Trace posterolateral pericardial effusion. PLE: Pleural effusion is present. AV: Mild thickening and calcification of AV leaflets. A trace of aortic regurgitation. MV: Mild thickening and calcification of mitral leaflets. Mild mitral annular calcification. Mild mitral regurgitation. PV: Pulmonic valve not well seen. A trace of pulmonic regurgitation. TV: No structural TV abnormalities noted. Mild to moderate tricuspid regurgitation Pappas: LV relaxation is impaired. LV filling pressure is elevated. Other: Estimated PA systolic pressure is 48 mmHg, assuming a mean RAP of 10 mmHg. MEASUREMENTS: 2D Parasternal [place] LVOT 1.9 cm LA Ds 4.2 cm LVIDd 4.7 cm Index 2.6 cm/m Ao An 2.2 cm LVIDs 2.9 cm Ao Rtd 3.3 cm Index 1.9 cm/m LV%fs 38.3 % LV Mass 164.5 g (87-129) IVSd 1 cm LVM Index 93.5 g/m2 LVPWd 1 cm RWT 0.4 LA Sng Plane LA Area 27.3 cm2 (8.8-23.4) LA Vol 91.4 ml Index 51.9 ml/m LA LngAx 6 cm RA Sng Plane RA Area 27.2 cm2 (8.3-19.5) RA Vol 95.7 ml Index 54.4 ml/m RA LngAx 6.6 cm Signed 03/20/2018 08:05 PM Lois Gray M.D. Performing Organization Address [facility] Hospitalcomd Phone Number [facility] [address] [place] [address] * B natriuretic peptide (03/20/2018 12:25 PM CDT) Only the most recent of 2 results within the time period is included. BNP 433 (H) 0 - 100 pg/mL [facility] DEPARTMENT OF PATHOLOGY AND [place] MEDICINE Specimen Blood Performing Organization Address [facility] Phone Number [facility] OF [address] [place] [address] PATHOLOGY AND GENOMIC MEDICINE * POC glucose (03/19/2018 8:31 PM CDT) POC glucose 173 (H) 65 - 99 mg/dL [facility] DEPARTMENT OF Comment: PATHOLOGY AND [facility] Notified RN GENOMIC MEDICINE Meter ID: [id number] Classified Ad Clerk: Turner Acosta Performing Organization Address [facility] Hospitalcomd Phone Number [facility] DEPARTMENT OF [address] [place] [address] PATHOLOGY AND GENOMIC MEDICINE * XR Lumbar Spine 1 Vw (03/16/2018 6:36 PM CDT) Narrative Performed At EXAMINATION:XR LUMBAR SPINE 1 VW [facility] CLINICAL HISTORY:Pain, increased lower back pain COMPARISON:None. IMPRESSION: Frontal view of the lumbar spine demonstrates diffuse demineralization and slight convexity to the left at the thoracolumbar junction. The L5-S1 disc space height cannot be assessed on the frontal view. There is no gross lytic or bone or blastic bone destruction. 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 Lateral view is suggested. [facility]-[id number] Procedure Note Interface, Radiology Results Incoming - 03/16/2018 6:45 PM CDT EXAMINATION: XR LUMBAR SPINE 1 VW CLINICAL HISTORY: Pain, increased lower back pain COMPARISON: None. IMPRESSION: Frontal view of the lumbar spine demonstrates diffuse demineralization and slight convexity to the left at the thoracolumbar junction. The L5-S1 disc space height cannot be assessed on the frontal view. There is no gross lytic or bone or blastic bone destruction. 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 Lateral view is suggested. [facility]-[id number] Performing Organization Address [facility] Phone Number [facility] [address] [place] [address] * XR Hip 2-3 View Left (03/16/2018 6:35 PM CDT) Narrative Performed At EXAMINATION: [facility] XR HIP 2-3 VIEWS LEFT CLINICAL HISTORY: Pain, increased pain of left hip from being moved in bed COMPARISON: Pelvis radiograph, obtained on 03/09/2018. FINDINGS: The bones are diffusely demineralized. Again seen is a left hip arthroplasty. The prosthesis appears well seated, anatomically aligned and without signs of loosening. 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 Right hip joint is narrowed. A healing fracture of the left inferior pubic ramus is again noted. There is no acute fracture, subluxation or periosteal reaction. IMPRESSION: No acute findings. No significant change. [id number] Procedure Note Interface, Radiology Results Incoming - 03/16/2018 6:53 PM CDT EXAMINATION: XR HIP 2-3 VIEWS LEFT CLINICAL HISTORY: Pain, increased pain of left hip from being moved in bed COMPARISON: Pelvis radiograph, obtained on 03/09/2018. FINDINGS: The bones are diffusely demineralized. Again seen is a left hip arthroplasty. The prosthesis appears well seated, anatomically aligned and without signs of loosening. 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 Right hip joint is narrowed. A healing fracture of the left inferior pubic ramus is again noted. There is no acute fracture, subluxation or periosteal reaction. IMPRESSION: No acute findings. No significant change. [id number] Performing Organization Address [facility] [place] [address] * Sputum culture (03/16/2018 3:35 PM CDT) Sputum culture isolate Normal oral roger isolated. [facility] DEPARTMENT OF Comment: PATHOLOGY AND Specimen Information GENOMIC MEDICINE Specimen Source: Sputum Specimen Site: Expectorated Specimen Sputum - Expectorated Performing Organization Address [facility] [place] Phone Number [facility] [place] [address] PATHOLOGY AND GENOMIC MEDICINE * C difficile toxin (03/13/2018 3:15 PM CDT) Clostridium difficile No Clostridium difficle toxin [facility] DEPARTMENT OF toxin present PATHOLOGY AND Comment: GENOMIC MEDICINE Specimen Information Specimen Source: Stool Specimen Site: Nonpreserved Specimen Stool - Nonpreserved Performing Organization Address [facility] [place] Phone Number [facility] [place] [address] PATHOLOGY AND GENOMIC MEDICINE * XR Chest 2 Vw (03/12/2018 8:31 PM CDT) Narrative Performed At EXAMINATION:[facility] CL[facility]ICAL H[facility]ORY:SHORTNESS OF BREATH COMPARISON:Most Recent IMPRESSION: Heart and mediastinum are stable. Bones are osteopenic. Small effusions with left basilar patchy atelectasis. [facility]-[id number] Procedure Note Interface, Radiology Results Incoming - 03/12/2018 8:42 PM CDT EXAMINATION: XR CHEST 2 VW CLINICAL HISTORY: SHORTNESS OF BREATH COMPARISON: Most Recent IMPRESSION: Heart and mediastinum are stable. Bones are osteopenic. Small effusions with left basilar patchy atelectasis. [facility]-[id number] Performing Organization Address [facility]/Zipcode Phone Number [facility] [address] [place] [address] * Phosphorus level (03/10/2018 5:12 AM CDT) Phosphorus 2.8 2.4 - 4.5 mg/dL [facility] DEPARTMENT OF PATHOLOGY AND GENOMIC MEDICINE Specimen Plasma specimen Performing Organization Address [facility]/Zipcode Phone Number [facility] DEPARTMENT [address] [address] PATHOLOGY AND GENOMIC MEDICINE * Magnesium level (03/10/2018 5:12 AM CDT) Magnesium 1.9 1.6 - 2.4 mg/dL [facility] DEPARTMENT OF PATHOLOGY AND GENOMIC MEDICINE Specimen Plasma specimen Performing Organization Address [facility] Phone Number [facility] [place] [address] PATHOLOGY AND GENOMIC MEDICINE * XR Pelvis 1 Or 2 Vw (03/09/2018 4:29 PM CDT) Narrative Performed At EXAMINATION:XR PELVIS 1 OR 2 VW [facility] CLINICAL HISTORY:follow up on last month x-ray COMPARISON:No Prior IMPRESSION: 1.There is diffuse osteopenia. 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 2.Mild deformity of the left inferior ramus most compatible with a healing fracture. No new fractures. Procedure Note Interface, Radiology Results Incoming - 03/09/2018 4:49 PM CDT EXAMINATION: XR PELVIS 1 OR 2 VW CLINICAL HISTORY: follow up on last month x-ray COMPARISON: No Prior IMPRESSION: 1. There is diffuse osteopenia. 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 2. Mild deformity of the left inferior ramus most compatible with a healing fracture. No new fractures. Performing Organization Address [facility] Phone Number [facility] [address] [place] [address] * Lactic acid level, SEPSIS - Now and repeat 2x every 3 hours (03/07/2018 4:26 PM CDT) Lactic acid 0.8 0.5 - 2.2 mmol/L [facility] DEPARTMENT OF PATHOLOGY AND GENOMIC MEDICINE Specimen Blood Performing Organization Address [facility]/Zipcode Phone Number [facility] [place]PART[place] [address] PATHOLOGY AND GENOMIC MEDICINE * ECG ED Preliminary Interpretation - NOT AN ORDER (03/07/2018 11:57 AM CDT) Narrative Performed At Rusty Mondragon MD 03/08/2018 10:08 AM ECG ED Preliminary Interpretation - Not an Order Performed by: RUSTY MONDRAGON Authorized by: RUSTY MONDRAGON ECG reviewed by ED Physician in the absence of a sorting machine attendant: yes Previous ECG: Previous ECG:Unavailable Interpretation: Interpretation: abnormal Rate: ECG rate:65 ECG rate assessment: normal Rhythm: Rhythm: atrial flutter Ectopy: Ectopy: none QRS: QRS axis:Normal QRS intervals:Normal Conduction: Conduction: abnormal (Variable blocks at 65) ST segments: ST segments:Normal T waves: T waves: inverted Inverted:II Q waves: Q waves:V1 and V2 Other findings: Other findings comment:Low voltage EKG * CRITICAL CARE (03/07/2018 11:57 AM CDT) Narrative Performed At Rusty Mondragon MD 03/08/2018 10:08 AM Critical Care Performed by: RUSTY MONDRAGON Authorized by: RUSTY MONDRAGON Critical care provider statement: Critical care time (minutes):43 Critical care time was exclusive of:Separately billable procedures and treating other patients and teaching time Critical care was necessary to treat or prevent imminent or life-threatening deterioration of the following conditions:Circulatory failure, HOME SERVICE DIRECTOR failure or compromise and renal failure (AMS) Critical care was time spent personally by me on the following activities:Development of treatment plan with patient or surrogate, discussions with consultants, discussions with primary provider, evaluation of patient's response to treatment, examination of patient, obtaining history from patient or surrogate, ordering and performing treatments and interventions, ordering and review of laboratory studies, ordering and review of radiographic studies, pulse oximetry, re-evaluation of patient's condition and review of old charts Brant 'yes' if you are taking over critical care for this patient from another provider.: no Comments: Pt p/w altered mental status this am- low grade fever of 100 in ER, hypotension noted by family and EMS down to 70's and 80's with nl heart rate, upon presentation in 90's, with fluid bolus 110 and above, no hemodynamic instability in ER, infectious evaluation with blood cultures, cxr, ua- + for UTI, IV ceftriaxone provided; CT head r/o ICH or HOME SERVICE DIRECTOR lesion, review of medications and labs show acute on chronic renal failure- may have caused adverse meciation reaction with anti-hypertensives; EKG with atrial flutter with variable block- may have had arrythmia, admit for telemetry and further assesment * CT Head Wo Contrast (03/07/2018 11:48 AM CDT) Narrative Performed At EXAMINATION:CT HEAD WO CONTRAST [facility] CLINICAL HISTORY:on anticoagulantaltered mental status COMPARISON:CT head 01/29/2016. TECHNIQUE: Noncontrast head CT performed using radiation dose reduction techniques.Technical factors are evaluated and adjusted to ensure appropriate moderation of exposure.Automated dose management technology is applied to adjust radiation exposure while achieving a diagnostic quality image. FINDINGS: Motion artifact limits the sensitivity of the evaluation. No evidence of acute intracranial hemorrhage, mass, mass effect, midline shift, or acute infarct. 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 Stable size and configuration of the ventricular system without hydrocephalus. Basal cisterns are clear. Hypodensity within the ventral aspect of the moreno which may be artifactual or reflect a chronic ischemic insult. Age commensurate global cerebral and cerebellar volume loss. Arteriosclerosis of the cavernous and paraclinoid internal carotid arteries, proximal right M1 segment, and vertebrobasilar system. Basal cisterns are clear. Skull base and calvarium appear grossly intact. Status post bilateral lens extractions. No significant sinus inflammatory changes.Mastoid air cells are clear. IMPRESSION: 1. No CT evidence of acute intracranial abnormality. [id number] Procedure Note Hm Interface, Radiology Results Incoming - 03/07/2018 11:56 AM CDT EXAMINATION: CT HEAD WO CONTRAST CLINICAL HISTORY: on anticoagulant altered mental status COMPARISON: CT head 01/29/2016. TECHNIQUE: Noncontrast head CT performed using radiation dose reduction techniques. Technical factors are evaluated and adjusted to ensure appropriate moderation of exposure. Automated dose management technology is applied to adjust radiation exposure while achieving a diagnostic quality image. FINDINGS: Motion artifact limits the sensitivity of the evaluation. No evidence of acute intracranial hemorrhage, mass, mass effect, midline shift, or acute infarct. 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 Stable size and configuration of the ventricular system without hydrocephalus. Basal cisterns are clear. Hypodensity within the ventral aspect of the moreno which may be artifactual or reflect a chronic ischemic insult. Age commensurate global cerebral and cerebellar volume loss. Arteriosclerosis of the cavernous and paraclinoid internal carotid arteries, proximal right M1 segment, and vertebrobasilar system. Basal cisterns are clear. Skull base and calvarium appear grossly intact. Status post bilateral lens extractions. No significant sinus inflammatory changes. Mastoid air cells are clear. IMPRESSION: 1. No CT evidence of acute intracranial abnormality. [id number] Performing Organization Address [facility] [place] [place] [address] * Troponin (03/07/2018 11:18 AM CDT) Troponin <0.30 0.00 - 0.30 ng/mL [facility] DEPARTMENT OF Comment: PATHOLOGY AND 0.30 - 1.49 GENOMIC MEDICINE ng/mlMay indicate increased risk of acute coronary syndrome. >=1.5 ng/ml Consistent with acute myocardial infarction. The diagnostic value of a single normal or non-diagnostic result is questionable.Serial samples at 2-6 hour intervals are required to rule out acute myocardial injury. Specimen Plasma specimen Performing Organization Address [facility] Phone Number [facility] [place] [address] PATHOLOGY AND GENOMIC MEDICINE * Blood culture, aerobic & anaerobic (03/07/2018 11:15 AM CDT) Blood culture isolate No growth after 5 days of [facility] DEPARTMENT OF incubation. PATHOLOGY AND Comment: GENOMIC MEDICINE Specimen Information Specimen Source: Blood Specimen Site: Forearm, right Specimen Blood - Forearm, right Performing Organization Address [facility] [place] [facility] [place] Number [facility] DEPARTMENT OF [address] [place] [address] PATHOLOGY AND GENOMIC MEDICINE * ECG 12 lead (03/07/2018 11:04 AM CDT) Ventricular rate 65 [facility] Atrial rate 65 [facility] QRSD interval 68 [facility] QT interval 440 [facility] QTC interval 457 [facility] QRS axis 1 -7 [facility] T wave axis 28 [facility] EKG impression Junctional rhythm-Possible [facility] MUSE Anterior infarct , age undetermined-Abnormal ECG-In automated comparison with ECG of 29-APR-2016 09:45,-Junctional rhythm has replaced Sinus rhythm- Performing Organization Address City/State/Zipcode Phone Number [facility] MUSE [address] [place] [address] after 01/29/2018 Insurance Payer Benefit Subscriber ID Type Phone Address Plan / Group HU[employer] MEDICARE HUMANA xxxxxxxxx PPO MEDICARE PPO/PFFS/E RS [facility] Advance Directives Patient has advance care planning documents, and code status on file. For more i nformation, please contact: Shawn Echeverria [address] [place] [address] Date Inactivated Comments Code Status Date Activated 04/01/2018 4:07 PM DNR 03/22/2018 10:58 PM Code Status decision reached by: Patient 03/22/2018 9:35 PM DNR 03/07/2018 5:21 PM Code Status decision reached by: Patient
[2019-01-30 12:20] VITALS: BP 125/65
== END | disposition home or self-care (01) ==
LOC: OR 09:08
PROVIDERS: ATTEND Internal Medicine Gastroenterology
DX: Z43.1 Encounter for attention to gastrostomy (principal); K44.9 Diaphragmatic hernia without obstruction or gangrene; R13.10 Dysphagia, unspecified; K21.9 Gastro-esophageal reflux disease without esophagitis; R00.1 Bradycardia, unspecified; I27.20 Pulmonary hypertension, unspecified; I69.854 Hemiplegia and hemiparesis following other cerebrovascular disease affecting left non-dominant side; I34.0 Nonrheumatic mitral (valve) insufficiency; F41.9 Anxiety disorder, unspecified; F32.9 Major depressive disorder, single episode, unspecified; Z88.6 Allergy status to analgesic agent; Z01.810 Encounter for preprocedural cardiovascular examination; Z01.812 Encounter for preprocedural laboratory examination; Z79.02 Long term (current) use of antithrombotics/antiplatelets
CPT/HCPCS: 36415; 43247; 85025; 93005; J2001; J2704; 43246